=== PATIENT | male | born 1995 | race Caucasian/White ===

== ENCOUNTER 2016-05-25 23:06 | Emergency (ER) | payer BC ==
[2016-05-26 00:32] LABS: HEMOGLOBIN 15.3 gm/dl (14.0-17.5); RED BLOOD COUNT 5.19 M/UL (4.20-5.50); WHITE BLOOD COUNT 8.7 K/UL (4.5-11.0)
[2016-05-26 00:50] LABS: BUN/CREATININE RATIO 14 (0-10)
== END 2016-05-26 03:05 | disposition home or self-care (01) ==
LOC: ER1 23:06
PROVIDERS: Family Medicine
DX: R05 Cough (principal); R07.9 Chest pain, unspecified
CPT/HCPCS: 36415; 71020; 80053; 85025; 85379; 94664; 99283